=== PATIENT | female | born 1965 | race African-American/Black ===

== ENCOUNTER 2020-04-19 10:07 | Emergency (ER) | payer SELFPAY ==
[~2020-04-19] VITALS: Ht 160 cm; Wt 64.0 kg
[2020-04-19 10:19] VITALS: BP 149/100
[2020-04-19 11:29] LABS: CLARITY URINE CLOUDY (CLEAR); COLOR URINE YELLOW (YELLOW); KETONES URINE 1+ (NEGATIVE); LEUKOCYTE ESTERASE URINE TRACE (NEGATIVE); NITRITE URINE NEGATIVE (NEGATIVE); OCCULT BLOOD URINE TRACE (NEGATIVE); PROTEIN URINE 1+ (NEGATIVE); SPECIFIC GRAVITY URINE 1.028 (1.005-1.030); UROBILINOGEN URINE 0.2 E.U./dL (0.2-1.0)
[2020-04-22 04:07] LABS: NEISSERIA GONORRHOEAE NAA Negative (Negative)
== END 2020-04-19 12:19 | disposition home or self-care (01) ==
LOC: ER 10:07
DX: B37.49 Other urogenital candidiasis (principal); N76.0 Acute vaginitis; B96.89 Other specified bacterial agents as the cause of diseases classified elsewhere; Z11.59 Encounter for screening for other viral diseases; I12.9 Hypertensive chronic kidney disease with stage 1 through stage 4 chronic kidney disease, or unspecified chronic kidney disease; N18.30 Chronic kidney disease, stage 3 unspecified; G35 Multiple sclerosis; Z86.59 Personal history of other mental and behavioral disorders
CPT/HCPCS: 81003; 87210; 87491; 87591; 99283